=== PATIENT | male | born 1950 | race Caucasian/White ===

== ENCOUNTER 2017-03-16 19:01 | Observation (INO) | payer MEDICARE, OTHER ==
[~2017-03-16] VITALS: Ht 180.3 cm; Wt 91.4 kg
[2017-03-16 19:11] VITALS: BP 172/98; PULSE 106; RESP 16; TEMP 99; O2SAT 95
[2017-03-16] MEDS ORDERED: SODIUM CHLOR 0.9% 1000 ML INJ 1,000 ML IV SCH (19:33)
[2017-03-16] MEDS ORDERED: ONDANSETRON HCL 4 MG/2 ML VIAL IVP ONE (19:45)
[2017-03-16] MEDS ORDERED: MORPHINE SULFATE 2 MG/ML INJ IV PUSH ONE (19:45)
[2017-03-16] MEDS ORDERED: SODIUM CHLORIDE 0.9% FLUSH 10 ML FLUSH IV FLUSH PRN ×2 (19:45→23:15)
[2017-03-16 19:49] VITALS: BP 151/76; PULSE 95; RESP 18; O2SAT 93
--- NOTE | 2017-03-16 19:51 | PD ---
HPI Chief Complaint: Flank/Kidney Pain Time Seen by Provider: 19:29 Travel History International Travel<30 days: No Contact w/Intl Traveler<30days: No Traveled to known affect area: No History of Present Illness HPI 66-year-old male here for evaluation of right flank pain. Patient reports that he has had pain for about 3 days, described as sharp, worse with movements, now radiating towards the midline of his back. He reports history of kidney stones about 5 years ago and reports feeling similar type of pain. He denies gross hematuria. No fevers or chills. No nausea or vomiting. No urinary or bowel incontinence or retention. No paresthesias or motor deficits. He denies trauma. [facility] Past Medical History Hypertension: Yes ?: Not Social History Alcohol Use: Yes (2 drinks/week) Tobacco Use: No Substance Use: No Allergies-Medications (Allergen,Severity, Reaction): Coded Allergies: shrimp (Verified Allergy, Severe, hives, 03/16/17) Uncoded Allergies: lobster (Allergy, Severe, hives, 03/16/17) Review of Systems Except as stated in HPI: all other systems reviewed are Neg Physical Exam Narrative GENERAL: Well-developed, well-nourished, awake, alert, comfortable, no apparent distress. SKIN: Focused skin assessment warm/dry. No rash. HEAD: Atraumatic. Normocephalic. EYES: Pupils equal and round. No scleral icterus. No injection or drainage. ENT: Mucous membranes pink and moist. NECK: Trachea midline. No JVD. CARDIOVASCULAR: Regular rate and rhythm. RESPIRATORY: No accessory muscle use. Clear to auscultation. Breath sounds equal bilaterally. GASTROINTESTINAL: Abdomen soft, non-tender, nondistended. MUSCULOSKELETAL: No obvious deformities. No clubbing. No cyanosis. No edema. Mild right CVA tenderness. No left CVA tenderness. No midline vertebral step- off or tenderness. NEUROLOGICAL: Awake and alert. No obvious cranial nerve deficits. Motor grossly within normal limits. Normal speech. Normal motor/sensory to all 4 extremities. PSYCHIATRIC: Appropriate mood and affect; insight and judgment normal. Data Data Last Documented VS Vital Signs Date Time Temp Pulse Resp B/P (MAP) Pulse Ox O2 Delivery O2 Flow Rate FiO2 03/16/17 20:06 16 03/16/17 19:49 95 151/76 (101) 93 Room Air 03/16/17 19:11 99.0 Orders Orders Complete Blood Count With Diff (03/16/17 19:33) Comprehensive Metabolic Panel (03/16/17 19:33) Lipase (03/16/17 19:33) Prothrombin Time / Inr (Pt) (03/16/17 19:33) Act Partial Throm Time (Ptt) (03/16/17 19:33) Urinalysis - C+S If Indicated (03/16/17 19:33) Ct Abd/Pel W/O Iv Contrast (03/16/17 19:33) Iv Access Insert/Monitor (03/16/17 19:33) Ecg Monitoring (03/16/17 19:33) Oximetry (03/16/17 19:33) Ondansetron Inj (Zofran Inj) (03/16/17 19:45) Sodium Chlor 0.9% 1000 Ml Inj (Ns 1000 M (03/16/17 19:33) Sodium Chloride 0.9% Flush (Ns Flush) (03/16/17 19:45) Ct Lumb Spine W/O Contrast (03/16/17 ) Morphine Inj (Morphine Inj) (03/16/17 19:45) Ct Abd/Pel W Iv Contrast(Rout) (03/16/17 21:47) Hydromorphone Pf Inj (Dilaudid Pf Inj) (03/16/17 22:00) Iohexol 350 Inj (Omnipaque 350 Inj) (03/16/17 22:15) Sodium Chlor 0.9% 1000 Ml Inj (Ns 1000 M (03/16/17 23:00) Potassium Chloride (Kcl) (03/16/17 23:00) Labs Laboratory Tests Test 03/16/17 19:40 03/16/17 19:50 Urine Collection Type VOIDED Urine Color STRAW Urine Turbidity CLEAR Urine pH 6.0 Urine Specific [place] 1.013 Urine Protein NEG mg/dL Urine Glucose (UA) NEG mg/dL Urine Ketones NEG mg/dL Urine Occult Blood MOD Urine Nitrite NEG Urine Bilirubin NEG Urine Leukocyte Esterase NEG Urine RBC 0-3 /hpf Urine WBC 0-2 /hpf Microscopic Urinalysis Comment CULT NOT INDICATED White Blood Count 9.9 TH/MM3 Red Blood Count 4.48 MIL/MM3 Hemoglobin 14.0 GM/DL Hematocrit 42.6 % Mean Corpuscular Volume 95.1 FL Mean Corpuscular Hemoglobin 31.3 PG Mean Corpuscular Hemoglobin Concent 32.9 % Red Cell Distribution Width 11.6 % Platelet Count 274 TH/MM3 Mean Platelet Volume 7.6 FL Neutrophils (%) (Auto) 65.0 % Lymphocytes (%) (Auto) 21.4 % Monocytes (%) (Auto) 11.5 % Eosinophils (%) (Auto) 1.1 % Basophils (%) (Auto) 1.0 % Neutrophils # (Auto) 6.5 TH/MM3 Lymphocytes # (Auto) 2.1 TH/MM3 Monocytes # (Auto) 1.1 TH/MM3 Eosinophils # (Auto) 0.1 TH/MM3 Basophils # (Auto) 0.1 TH/MM3 CBC Comment DIFF FINAL Differential Comment Prothrombin Time 10.7 SEC Prothromb Time International Ratio 1.1 RATIO Activated Partial Thromboplast Time 27.3 SEC Blood Urea Nitrogen 11 MG/DL Creatinine 0.86 MG/DL Random Glucose 110 MG/DL Total Protein 7.2 GM/DL Albumin 3.4 GM/DL Calcium Level 8.3 MG/DL Alkaline Phosphatase 46 U/L Aspartate Amino Transf (AST/SGOT) 8 U/L Alanine Aminotransferase (ALT/SGPT) 14 U/L Total Bilirubin 0.5 MG/DL Sodium Level 134 MEQ/L Potassium Level 3.1 MEQ/L Chloride Level 99 MEQ/L Carbon Dioxide Level 30.6 MEQ/L Anion Gap 4 MEQ/L Estimat Glomerular Filtration Rate 88 ML/MIN Lipase 116 U/L MDM Medical Decision Making Medical Screen Exam Complete: Yes Emergency Medical Condition: Yes Differential Diagnosis Nephrolithiasis, ureterolithiasis, pyelonephritis, musculoskeletal pain, spinal stenosis/cauda equina syndrome less likely Narrative Course Initial vital signs show heart rate 106, blood pressure 172/98, pulse ox 95% on room air, oral temp of 99F. CBC: WBC 9.9, hemoglobin 14, hematocrit 42.6, platelets 274. CMP is remarkable for potassium 3.1 which was replaced orally, otherwise essentially unremarkable. Lipase is 116. CT abdomen pelvis: CONCLUSION: 1. Numerous cystic structures in the renal chelly bilaterally likely representing peripelvic cysts and bilateral cortical renal masses likely representing cysts. These findings could be further evaluated with contrast-enhanced study to confirm that they are cysts. Ureters are normal bladder. No calculi identified. 2. Numerous colonic diverticula. No evidence of acute diverticulitis. 3. Prominent facet arthrosis lower lumbar spine. 4. Markedly enlarged prostate. CT lumbar spine: CONCLUSION: Severe facet arthrosis at L5-S1 with severe bilateral neural foraminal narrowing. Patient was made aware of these findings at this time and recommendation for CT abdomen pelvis with IV contrast. At this point he had been given 4 mg of IV morphine yet complains of continued back pain stating that it did not help at all. He was given a dose of 1 mg of IV Dilaudid. CT abdomen pelvis with IV contrast: CONCLUSION: 1. Renal cortical masses have Hounsfield unit values indicating cysts. Central hilar cystic structures in the kidneys are very likely represent peripelvic cysts. 2. Enlarged prostate. No evidence of ureteral dilatation. Patient was made aware of the CT abdomen pelvis with IV contrast report. He states that his pain has improved with the Dilaudid, however he continues have lower back pain. At this time his heart rate is 115 bpm, sinus. He was already given a liter of normal saline IV and will be given another liter. Given ongoing sinus tachycardia as well as intractable lower back pain, the patient will be admitted for overnight observation. Case discussed with hospitalist Dr. Bee who will admit the patient to the hospitalist service. Diagnosis Primary Impression: Intractable low back pain Additional Impressions: Sinus tachycardia Renal cyst Admitting Information Admitting Physician Requests: Observation Brennen Kunz MD Mar 16, 2017 19:51
[2017-03-16 20:02] LABS: AUTOMATED NEUTROPHIL # 6.5 TH/MM3 (1.8-7.7); BASOPHIL # 0.1 TH/MM3 (0-0.2); EOSINOPHIL # 0.1 TH/MM3 (0-0.4); EOSINOPHIL % 1.1 % (0.0-4.0); HEMATOCRIT 42.6 % (39.0-51.0); LYMPH % 21.4 % (9.0-44.0); LYMPHOCYTE # 2.1 TH/MM3 (1.0-4.8); MEAN CELL VOLUME 95.1 FL (80.0-100.0); MEAN CORPUSCULAR HEMOGLOBIN 31.3 PG (27.0-34.0); MEAN CORPUSCULAR HGB CONC 32.9 % (32.0-36.0); MEAN PLATELET VOLUME 7.6 FL (7.0-11.0); MONO % 11.5 % (0.0-8.0); MONOCYTE # 1.1 TH/MM3 (0-0.9); PLATELET COUNT 274 TH/MM3 (150-450); RED BLOOD COUNT 4.48 MIL/MM3 (4.50-5.90); RED CELL DISTRIBUTION WIDTH 11.6 % (11.6-17.2); WHITE BLOOD COUNT 9.9 TH/MM3 (4.0-11.0)
[2017-03-16 20:11] LABS: CHLORIDE 99 MEQ/L (98-107); SODIUM (NA) 134 MEQ/L (136-145)
[2017-03-16 20:13] LABS: BILIRUBIN, URINE NEG (NEG); BLOOD, URINE MOD (NEG); GLUCOSE,URINE NEG (NEG); KETONE, URINE NEG (NEG); NITRITE,URINE NEG (NEG); URINE LEUKOCYTE ESTERASE NEG (NEG)
[2017-03-16 20:14] LABS: CALCIUM 8.3 MG/DL (8.5-10.1)
[2017-03-16 20:15] LABS: URINE COLOR STRAW (YELLW/STRAW)
[2017-03-16 20:15] LABS: ALBUMIN 3.4 GM/DL (3.4-5.0); BICARBONATE 30.6 MEQ/L (21.0-32.0); BLOOD UREA NITROGEN 11 MG/DL (7-18); GLUCOSE,RANDOM 110 MG/DL (74-106); LIPASE 116 U/L (73-393)
[2017-03-16 20:16] LABS: RBC, URINE 0-3 /hpf (0-3)
[2017-03-16 20:17] LABS: WBC, URINE 0-2 /hpf (0-5)
[2017-03-16 20:17] LABS: INTERNATIONAL NORMALIZED RATIO 1.1 RATIO; PROTHROMBIN TIME - PATIENT 10.7 SEC (9.8-11.6)
[2017-03-16 20:18] LABS: ALT (GPT) 14 U/L (12-78); AST (GOT) 8 U/L (15-37); CREATININE 0.86 MG/DL (0.60-1.30); GLOMERULAR FILTRATION RATE 88 ML/MIN (>89)
[2017-03-16 20:20] LABS: TOTAL BILIRUBIN ADULT 0.5 MG/DL (0.2-1.0); TOTAL PROTEIN 7.2 GM/DL (6.4-8.2)
[2017-03-16 20:21] LABS: ALKALINE PHOSPHATASE 46 U/L (45-117)
[2017-03-16 21:00] VITALS: BP 154/76; PULSE 96; RESP 18; O2SAT 92
--- NOTE | 2017-03-16 21:30 | RADRPT ---
EXAM DATE/TIME: 03/16/2017 20:22 [facility] COMPARISON: No previous studies available for comparison. INDICATIONS : Right flank and back pain for 3 days ORAL CONTRAST: No oral contrast ingested. RADIATION DOSE: 17.94 CTDIvol (mGy) MEDICAL HISTORY : Hypertension. Renal calculi. SURGICAL HISTORY : None. ENCOUNTER: Initial ACUITY: 3 days PAIN SCALE: 8/10 LOCATION: Right flank TECHNIQUE: Volumetric scanning of the abdomen and pelvis was performed. Using automated exposure control and ad justment of the mA and/or kV according to patient size, radiation dose was kept as low as reasonably achievable to obtain optimal diagnostic quality images. DICOM format image data is available electro nically for review and comparison. FINDINGS: LOWER LUNGS: The visualized lower lungs are clear. LIVER: Homogeneous density without lesion. There is no dilation of the biliary tree. No calcified gallston es. SPLEEN: Normal size without lesion. PANCREAS: Within normal limits. KIDNEYS: Are multiple cystic structures in the renal chelly bilaterally likely representing peripelvic cysts. 2. 8 cm posterior mid pole right renal mass, exophytic 2.4 cm posterior mid pole left renal mass and 1.5 cm exophytic medial left upper pole renal mass all likely represent cysts. No calculi identified. Ur eters are normal in diameter. ADRENAL GLANDS: Within normal limits. VASCULAR: Aortic diameter are within normal limits. Diffuse arterial calcification. BOWEL/MESENTERY: Numerous colonic diverticula. No evidence of acute diverticulitis. No free air or free fluid. Appendi x within normal limits. ABDOMINAL WALL: Within normal limits. RETROPERITONEUM: There is no lymphadenopathy. BLADDER: Mildly distended urinary bladder. REPRODUCTIVE: Enlarged prostate measuring 6.8 cm in transverse dimension. INGUINAL: There is no lymphadenopathy or hernia. MUSCULOSKELETAL: Prominent lower lumbar spine facet arthrosis. CONCLUSION: 1. Numerous cystic structures in the renal chelly bilaterally likely representing peripelvic cysts and bilateral cortical renal masses likely representing cysts. These findings could be further evaluated with contrast-enhanced study to confirm that they are cysts. Ureters are normal bladder. No calculi i dentified. 2. Numerous colonic diverticula. No evidence of acute diverticulitis. 3. Prominent facet arthrosis lower lumbar spine. 4. Markedly enlarged prostate. Jovi Browning MD on March 16, 2017 at 21:23 Board Certified Radiologist. This report was verified electronically.
--- NOTE | 2017-03-16 21:33 | RADRPT ---
EXAM DATE/TIME: 03/16/2017 20:22 [facility] COMPARISON: CT ABDOMEN & PELVIS W/O CONTRAST, March 16, 2017, 20:22. INDICATIONS : Right flank and back pain for 3 days. RADIATION DOSE: CTDIvol (mGy) ; Reconstructed from previous dataset, no dose MEDICAL HISTORY : Hypertension. Renal calculi. SURGICAL HISTORY : None. ENCOUNTER: Initial ACUITY: 3 days PAIN SCALE: 8/10 LOCATION: Right flank TECHNIQUE: Volumetric scanning of the lumbar spine was performed. Multiplanar reconstructions in the sagittal, coronal and oblique axial planes were performed. Using automated exposure control and adjustment of the mA and/or kV according to patient size, radiation dose was kept as low as reasonably achievable t o obtain optimal diagnostic quality images. DICOM format image data is available electronically for review and comparison. FINDINGS: VERTEBRAE: Normal vertebral body height. ALIGNMENT: Mild grade 1 anterolisthesis L5 on S1. Alignment otherwise within normal limits. T12-L1: The thecal sac has a normal diameter. No evidence of disc bulge or protrusion. The neural foramina are patent bilaterally. L1-L2: The thecal sac has a normal diameter. No evidence of disc bulge or protrusion. The neural foramina are patent bilaterally. L2-L3: Minimal broad-based disc bulge. No evidence of focal disc protrusion. Central canal normal diameter. Neural foraminal diameters within normal limits. L3-L4: Minimal broad-based disc bulge. No evidence of focal disc protrusion. Central canal normal diameter. Neural foraminal diameters within normal limits. L4-L5: Mild broad-based disc bulge and bilateral facet arthrosis. No evidence of focal disc protrusion. Cent ral canal normal diameter. Neural foraminal diameters within normal limits. L5-S1: Severe bilateral facet arthrosis, grade 1 anterolisthesis. Broad-based disc bulge. Severe bilateral n eural foraminal narrowing. Central canal diameter within normal limits. CONCLUSION: Severe facet arthrosis at L5-S1 with severe bilateral neural foraminal narrowing. Jovi Browning MD on March 16, 2017 at 21:28 Board Certified Radiologist. This report was verified electronically.
[2017-03-16 22:00] VITALS: BP 151/74; PULSE 98; RESP 18; O2SAT 93
[2017-03-16] MEDS ORDERED: HYDROmorphone HCL PF 1 MG/ML VIAL IV PUSH ONE (22:00)
[2017-03-16] MEDS ORDERED: IOHEXOL 350 MG/ML 10 ML VIAL (for RAD DIAG) IVCONTRAST ONE (22:15)
--- NOTE | 2017-03-16 22:31 | RADRPT ---
EXAM DATE/TIME: 03/16/2017 22:09 [facility] COMPARISON: CT ABDOMEN & PELVIS W/O CONTRAST, March 16, 2017, 20:22. INDICATIONS : Right flank and back pain. Abnormal non contrast CT IV CONTRAST: 96 cc Omnipaque 350 (iohexol) IV ORAL CONTRAST: No oral contrast ingested. RADIATION DOSE: 11.82 CTDIvol (mGy) MEDICAL HISTORY : Hypertension. SURGICAL HISTORY : None. ENCOUNTER: Initial ACUITY: 3 days PAIN SCALE: 7/10 LOCATION: Right flank TECHNIQUE: Volumetric scanning of the abdomen and pelvis was performed. Using automated exposure control and ad justment of the mA and/or kV according to patient size, radiation dose was kept as low as reasonably achievable to obtain optimal diagnostic quality images. DICOM format image data is available electro nically for review and comparison. FINDINGS: Multiple cystic structures in the renal chelly have an appearance very suggestive of peripelvic cysts. Ureters are normal diameter. Posterior left renal mass and posterior mid pole right renal mass have H ounsfield unit measurements indicating cysts. Mildly prominent intrahepatic and extra hepatic biliary ducts with common duct measuring 9 mm in port a hepatis. Gallbladder, spleen, pancreas, and adrenal glands within normal limits. Bladder moderately distended. Prostate enlarged. Numerous colonic diverticula. No evidence of acute d iverticulitis. Appendix within normal limits. Prominent facet arthrosis lower lumbar spine. CONCLUSION: 1. Renal cortical masses have Hounsfield unit values indicating cysts. Central hilar cystic structure s in the kidneys are very likely represent peripelvic cysts. 2. Enlarged prostate. No evidence of ureteral dilatation. Jovi Browning MD on March 16, 2017 at 22:23 Board Certified Radiologist. This report was verified electronically.
[2017-03-16 23:00] VITALS: BP 148/80; PULSE 114; RESP 18; O2SAT 92
[2017-03-16] MEDS ORDERED: SODIUM CHLOR 0.9% 1000 ML INJ 1,000 ML IV ONE (23:00)
[2017-03-16] MEDS ORDERED: POTASSIUM CHLORIDE 20 MEQ CONTROLLED RELEASE TAB PO ONE (23:00)
[2017-03-16] MEDS ORDERED: ACETAMINOPHEN 325 MG TAB PO PRN (23:15)
[2017-03-16] MEDS ORDERED: ONDANSETRON HCL 4 MG/2 ML VIAL IVP PRN (23:15)
[2017-03-16] MEDS ORDERED: SENNOSIDES 8.6 MG TAB PO PRN (23:15)
[2017-03-16] MEDS ORDERED: MAGNESIUM HYDROXIDE SUSP 30 ML CUP PO PRN (23:15)
[2017-03-16] MEDS ORDERED: TRIMETHOBENZAMIDE INJ 200 MG/2 ML VIAL IM PRN (23:15)
[2017-03-16] MEDS ORDERED: LACTULOSE SYRUP 20 GM/30 ML CUP PO PRN (23:15)
[2017-03-16] MEDS ORDERED: ACETAMINOPHEN/HYDROcodone 325 MG/5 MG TAB PO PRN (23:15)
[2017-03-16] MEDS ORDERED: BISACODYL 10 MG SUPP RECTAL PRN (23:15)
[2017-03-16 23:55] VITALS: BP 158/88
[2017-03-17] VITALS: BP 169/95; PULSE 117; RESP 20; TEMP 99; O2SAT 95
[2017-03-17] MEDS: SODIUM CHLOR 0.9% 1000 ML INJ 1,000 ML IV SCH ×2 (00:55→08:59)
[2017-03-17] MEDS: MORPHINE SULFATE 2 MG/ML INJ IV PUSH PRN ×3 (01:00→09:58)
[2017-03-17] MEDS ORDERED: ASPI81CH6 CHEW (01:05)
[2017-03-17 04:00] VITALS: O2SAT 95
[2017-03-17 07:50] VITALS: BP 154/82; PULSE 114; RESP 20; TEMP 99.4; O2SAT 94
[2017-03-17 08:10] LABS: AUTOMATED NEUTROPHIL # 7.1 TH/MM3 (1.8-7.7); BASOPHIL % 0.3 % (0.0-2.0); EOSINOPHIL % 0.2 % (0.0-4.0); HEMATOCRIT 39.2 % (39.0-51.0); HEMOGLOBIN 12.8 GM/DL (13.0-17.0); LYMPH % 11.8 % (9.0-44.0); LYMPHOCYTE # 1.1 TH/MM3 (1.0-4.8); MEAN CELL VOLUME 96.3 FL (80.0-100.0); MEAN CORPUSCULAR HEMOGLOBIN 31.4 PG (27.0-34.0); MEAN CORPUSCULAR HGB CONC 32.6 % (32.0-36.0); MEAN PLATELET VOLUME 7.5 FL (7.0-11.0); MONO % 12.8 % (0.0-8.0); MONOCYTE # 1.2 TH/MM3 (0-0.9); NEUT % 74.9 % (16.0-70.0); PLATELET COUNT 264 TH/MM3 (150-450); RED BLOOD COUNT 4.07 MIL/MM3 (4.50-5.90); RED CELL DISTRIBUTION WIDTH 12.1 % (11.6-17.2); WHITE BLOOD COUNT 9.4 TH/MM3 (4.0-11.0)
[2017-03-17 08:13] LABS: CHLORIDE 106 MEQ/L (98-107); SODIUM (NA) 139 MEQ/L (136-145)
[2017-03-17 08:34] LABS: ALBUMIN 2.8 GM/DL (3.4-5.0); ALKALINE PHOSPHATASE 36 U/L (45-117); ALT (GPT) 11 U/L (12-78); AST (GOT) 8 U/L (15-37); BICARBONATE 27.9 MEQ/L (21.0-32.0); BLOOD UREA NITROGEN 7 MG/DL (7-18); CREATININE 0.71 MG/DL (0.60-1.30); GLOMERULAR FILTRATION RATE 110 ML/MIN (>89); GLUCOSE,RANDOM 131 MG/DL (74-106); TOTAL PROTEIN 6.3 GM/DL (6.4-8.2)
[2017-03-17] MEDS ORDERED: DOCUSATE SODIUM 50 MG/SENNA 8.6 MG TAB PO SCH (09:00)
[2017-03-17] MEDS ORDERED: SODIUM CHLORIDE 0.9% FLUSH 10 ML FLUSH IV FLUSH SCH (09:00)
[2017-03-17] MEDS ORDERED: INFLUENZA VIRUS VACCINE (QUADRIVALENT) 0.5 ML SYR IM ONE (09:00)
[2017-03-17] MEDS ORDERED: TAMS0.4C4 PO (10:46)
[2017-03-17] MEDS ORDERED: HYDR12.57 PO (10:48)
[2017-03-17] MEDS ORDERED: AMLO10TA2 PO (10:49)
[2017-03-17] MEDS ORDERED: METO25TA3 PO (10:54)
[2017-03-17] MEDS ORDERED: OMEP20TA93 PO (10:55)
[2017-03-17] MEDS ORDERED: LOSA50TA PO (10:55)
[2017-03-17] MEDS ORDERED: methylPREDNISolone SOD SUCC 40 MG/1 ML VIAL IV PUSH ONE ×2 (11:00→16:45)
[2017-03-17] MEDS ORDERED: KETOROLAC TROMETHAMINE 30 MG/ML (IVP) VIAL IV PUSH ONE ×2 (11:00→16:45)
[2017-03-17 11:50] VITALS: BP 134/74; PULSE 99; RESP 20; TEMP 97.4; O2SAT 93
--- NOTE | 2017-03-17 14:17 | HHI.HP ---
[facility] Service [facility] Primary Care Physician No Primary Care Physician Admission Diagnosis intractable low back pain, sinus tachycardia, renal cysts Diagnoses: Chief Complaint: Back pain Travel History International Travel<30 Days: No Contact w/Intl Traveler <30 Da: No Traveled to Known Affected Are: No History of Present Illness Patient is a 66-year-old gentleman with a history of hypertension who complained of right and left lower back pain for the last 3 days. He tried some hydrocodone that he had leftover from previous dental work. This was not helpful. He reports the pain is worse with movement and walking. There have been no fevers or chills. He has a history of kidney stones and thought maybe was a kidney stone. He has no hematuria and is not passing any stones. Patient had elevated heart rate and blood pressure which improved with IV morphine for pain. The back pain was improved also with IV morphine. Patient has no nausea and vomiting. He has been recommended for further observation and treatment due to intractable lumbar pain. Review of Systems Constitutional: DENIES: Diaphoretic episodes, Fatigue, Fever, Weight gain, Weight loss, Chills, Dizziness, Change in appetite, Night Sweats Endocrine: DENIES: Heat/cold intolerance, Polydipsia, Polyuria, Polyphagia Eyes: DENIES: Blurred vision, Diplopia, Eye inflammation, Eye pain, Vision loss , Photosensitivity, Double Vision Ears, nose, mouth, throat: DENIES: Tinnitus, Hearing loss, Vertigo, Nasal discharge, Oral lesions, Throat pain, Hoarseness, Ear Pain, Running Nose, Epistaxis, Sinus Pain, Toothache, Odynophagia Respiratory: DENIES: Apneas, Cough, Snoring, Wheezing, Hemoptysis, Sputum production, Shortness of breath Cardiovascular: DENIES: Chest pain, Palpitations, Syncope, Dyspnea on Exertion , PND, Lower Extremity Edema, Orthopnea, Claudication Genitourinary: DENIES: Sexual dysfunction, Urinary frequency, Urinary incontinence, Urgency, Hematuria, Dysuria, Nocturia, Penile Discharge, Testicular Pain, Testicular Swelling Musculoskeletal: COMPLAINS OF: Back pain, DENIES: Joint pain, Muscle aches, Stiffness, Joint Swelling, Neck pain Integumentary: DENIES: Abnormal pigmentation, Nail changes, Pruritus, Rash Hematologic/lymphatic: DENIES: Bruising, Lymphadenopathy Immunologic/allergic: DENIES: Eczema, Urticaria Neurologic: DENIES: Abnormal gait, Headache, Localized weakness, Paresthesias, Seizures, Speech Problems, Tremor, Poor Balance Psychiatric: DENIES: Anxiety, Confusion, Mood changes, Depression, Hallucinations, Agitation, Suicidal Ideation, Homicidal Ideation, Delusions Except as stated in HPI: all other systems reviewed are Neg Past Family Social History Past Medical History Hypertension Benign prostatic hyperplasia Nephrolithiasis Past Surgical History Bilateral knee replacements Hernia repair Reported Medications Reviewed in the EMR Allergies: Coded Allergies: shrimp (Verified Allergy, Severe, hives, 03/16/17) Uncoded Allergies: lobster (Allergy, Severe, hives, 03/16/17) Active Ordered Medications Reviewed in the EMR Family History Mother at 73 from pancreatic cancer Father at 93 Social History Lives with his , visiting from [place] Denies tobacco or alcohol dependency Physical Exam Vital Signs Vital Signs Date Time Temp Pulse Resp B/P (MAP) Pulse Ox O2 Delivery O2 Flow Rate FiO2 03/17/17 11:50 97.4 99 20 134/74 (94) 93 03/17/17 07:50 99.4 114 20 154/82 (106) 94 03/17/17 04:00 95 03/17/17 00:00 99.0 117 20 169/95 (119) 95 03/16/17 23:55 116 18 158/88 (111) 92 03/16/17 23:00 114 18 148/80 (102) 92 Room Air 03/16/17 22:58 18 03/16/17 22:00 98 18 151/74 (99) 93 03/16/17 21:00 96 18 154/76 (102) 92 Room Air 03/16/17 20:06 16 03/16/17 19:49 95 18 151/76 (101) 93 Room Air 03/16/17 19:32 18 03/16/17 19:11 99.0 106 16 172/98 (122) 95 Physical Exam GENERAL: This is a well-nourished, well-developed patient, in no apparent distress. SKIN: No rashes, ecchymoses or lesions. Cool and dry. HEAD: Atraumatic. Normocephalic. No temporal or scalp tenderness. EYES: Pupils equal round and reactive. Extraocular motions intact. No scleral icterus. No injection or drainage. ENT: Nose without bleeding, purulent drainage or septal hematoma. Throat without erythema, tonsillar hypertrophy or exudate. Uvula midline. Airway patent. NECK: Trachea midline. No JVD or lymphadenopathy. Supple, nontender, no meningeal signs. CARDIOVASCULAR: Regular rate and rhythm without murmurs, gallops, or rubs. RESPIRATORY: Clear to auscultation. Breath sounds equal bilaterally. No wheezes , rales, or rhonchi. GASTROINTESTINAL: Abdomen soft, non-tender, nondistended. No hepato-splenomegaly , or palpable masses. No guarding. MUSCULOSKELETAL: Tenderness along the left lumbar region, otherwise Extremities without clubbing, cyanosis, or edema. No joint tenderness, effusion, or edema noted. No calf tenderness. Negative Homans sign bilaterally. Difficulty with raising left leg NEUROLOGICAL: Awake and alert. Cranial nerves II through XII intact. Motor and sensory grossly within normal limits. Five out of 5 muscle strength in all muscle groups. Normal speech. Laboratory Laboratory Tests Test 03/16/17 19:40 03/16/17 19:50 03/17/17 07:15 Urine Collection Type VOIDED Urine Color STRAW Urine Turbidity CLEAR Urine pH 6.0 Urine Specific [place] 1.013 Urine Protein NEG Urine Glucose (UA) NEG Urine Ketones NEG Urine Occult Blood MOD Urine Nitrite NEG Urine Bilirubin NEG Urine Leukocyte Esterase NEG Urine RBC 0-3 Urine WBC 0-2 Microscopic Urinalysis Comment CULT NOT INDICATED White Blood Count 9.9 9.4 Red Blood Count 4.48 4.07 Hemoglobin 14.0 12.8 Hematocrit 42.6 39.2 Mean Corpuscular Volume 95.1 96.3 Mean Corpuscular Hemoglobin 31.3 31.4 Mean Corpuscular Hemoglobin Concent 32.9 32.6 Red Cell Distribution Width 11.6 12.1 Platelet Count 274 264 Mean Platelet Volume 7.6 7.5 Neutrophils (%) (Auto) 65.0 74.9 Lymphocytes (%) (Auto) 21.4 11.8 Monocytes (%) (Auto) 11.5 12.8 Eosinophils (%) (Auto) 1.1 0.2 Basophils (%) (Auto) 1.0 0.3 Neutrophils # (Auto) 6.5 7.1 Lymphocytes # (Auto) 2.1 1.1 Monocytes # (Auto) 1.1 1.2 Eosinophils # (Auto) 0.1 0.0 Basophils # (Auto) 0.1 0.0 CBC Comment DIFF FINAL DIFF FINAL Differential Comment Prothrombin Time 10.7 Prothromb Time International Ratio 1.1 Activated Partial Thromboplast Time 27.3 Blood Urea Nitrogen 11 7 Creatinine 0.86 0.71 Random Glucose 110 131 Total Protein 7.2 6.3 Albumin 3.4 2.8 Calcium Level 8.3 8.0 Alkaline Phosphatase 46 36 Aspartate Amino Transf (AST/SGOT) 8 8 Alanine Aminotransferase (ALT/SGPT) 14 11 Total Bilirubin 0.5 1.0 Sodium Level 134 139 Potassium Level 3.1 3.6 Chloride Level 99 106 Carbon Dioxide Level 30.6 27.9 Anion Gap 4 5 Estimat Glomerular Filtration Rate 88 110 Lipase 116 Result Diagram: 03/17/17 0715 03/17/17 0715 Imaging Last 24 hours Impressions Abdomen/Pelvis CT 03/16/172146 Signed Impressions: Service Date/Time: Thursday, March 16, 2017 22:09 - CONCLUSION: 1. Renal cortical masses have Hounsfield unit values indicating cysts. Central hilar cystic structures in the kidneys are very likely represent peripelvic cysts. 2. Enlarged prostate. No evidence of ureteral dilatation. Jovi Browning MD Abdomen/Pelvis CT 03/16/17 193 Signed Impressions: Service Date/Time: Thursday, March 16, 2017 20:22 - CONCLUSION: 1. Numerous cystic structures in the renal chelly bilaterally likely representing peripelvic cysts and bilateral cortical renal masses likely representing cysts. These findings could be further evaluated with contrast-enhanced study to confirm that they are cysts. Ureters are normal bladder. No calculi identified. 2. Numerous colonic diverticula. No evidence of acute diverticulitis. 3. Prominent facet arthrosis lower lumbar spine. 4. Markedly enlarged prostate. Jovi Browning MD Caprini VTE Risk Assessment Caprini VTE Risk Assessment: No/Low Risk (score <= 1) Caprini Risk Assessment Model Point Value = 1 Point Value = 2 Point Value = 3 Point Value = 5 Age 41-60 Minor surgery BMI > 25 kg/m2 Swollen legs Varicose veins or History of unexplained or recurrent spontaneous Oral contraceptives or hormone replacement Sepsis (< 1 month) Serious lung disease, including pneumonia (< 1 month) Abnormal pulmonary function Acute myocardial infarction Congestive heart failure (< 1 month) History of inflammatory bowel disease Medical patient at bed rest Age 61-74 Arthroscopic surgery Major open surgery (> 45 min) Laparoscopic surgery (> 45 min) Malignancy Confined to bed (> 72 hours) Immobilizing plaster cast Central venous access Age >= 75 History of VTE Family history of VTE Factor V Leiden Prothrombin [id number] Lupus anticoagulant Anticardiolipin antibodies Elevated serum homocysteine Heparin-induced thrombocytopenia Other congenital or acquired thrombophilia Stroke (< 1 month) Elective arthroplasty Hip, pelvis, or leg fracture Acute spinal cord injury (< 1 month) Prophylaxis Regimen Total Risk Factor Score Risk Level Prophylaxis Regimen 0-1 Low Early ambulation 2 Moderate Order ONE of the following: *Sequential Compression Device (SCD) *Heparin 5000 units SQ BID 3-4 Higher Order ONE of the following medications: *Heparin 5000 units SQ TID *Enoxaparin/Lovenox 40 mg SQ daily (WT < 150 kg, CrCl > 30 mL/min) *Enoxaparin/Lovenox 30 mg SQ daily (WT < 150 kg, CrCl > 10-29 mL/min) *Enoxaparin/Lovenox 30 mg SQ BID (WT < 150 kg, CrCl > 30 mL/min) AND/OR *Sequential Compression Device (SCD) 5 or more Highest Order ONE of the following medications: *Heparin 5000 units SQ TID (Preferred with Epidurals) *Enoxaparin/Lovenox 40 mg SQ daily (WT < 150 kg, CrCl > 30 mL/min) *Enoxaparin/Lovenox 30 mg SQ daily (WT < 150 kg, CrCl > 10-29 mL/min) *Enoxaparin/Lovenox 30 mg SQ BID (WT < 150 kg, CrCl > 30 mL/min) AND *Sequential Compression Device (SCD) Assessment and Plan Problem List: (1) Intractable low back pain ICD Code: M54.5 - Low back pain Status: Acute Plan: will follow-up MRI Pending findings we'll discuss with neurosurgery Monitor patient with current IV narcotics for pain management as well as anti- inflammatory medicine IV steroids given for inflammation as well (2) HTN (hypertension) ICD Code: I10 - Essential (primary) hypertension Plan: Continue home medications for blood pressure (3) BPH (benign prostatic hyperplasia) ICD Code: N40.0 - Benign prostatic hyperplasia without lower urinary tract symptoms Plan: Continue Flomax Fide Delgado MD Mar 17, 2017 14:17
[2017-03-17] MEDS ORDERED: LOSARTAN 50 MG TAB PO SCH (15:00)
--- NOTE | 2017-03-17 15:17 | RADRPT ---
EXAM DATE/TIME: 03/17/2017 14:37 [facility] COMPARISON: CT LUMBAR SPINE W/O CONTRAST, March 16, 2017, 20:22. INDICATIONS : Pain. Bilateral flank pain. MEDICAL HISTORY : Hypertension. SURGICAL HISTORY : Total knee replacement, left. Total knee replacement, right. ENCOUNTER: Initial ACUITY: 1 day PAIN SCORE: 2/10 LOCATION: [facility] TECHNIQUE: Multiplanar multisequence MRI of the lumbar spine was performed without contrast. FINDINGS: The most caudal appearing lumbar vertebra is numbered as L5. VERTEBRAE: Homogeneous signal. Normal alignment. There is disc desiccation. CONUS: Normal level and configuration. T12-L1: The thecal sac has a normal diameter. No evidence of disc bulge or protrusion. The neural foramina are patent bilaterally. L1-L2: The thecal sac has a normal diameter. No evidence of disc bulge or protrusion. The neural foramina are patent bilaterally. L2-L3: The thecal sac has a normal diameter. No evidence of disc bulge or protrusion. The neural foramina are patent bilaterally. L3-L4: The thecal sac has a normal diameter. No evidence of disc bulge or protrusion. The neural foramina are patent bilaterally. L4-L5: The thecal sac has a normal diameter. No evidence of disc bulge or protrusion. The neural foramina are patent bilaterally. L5-S1: There is a mild disc bulge with minimal flattening of the anterior thecal sac focal protrusion. Exten sive degenerative changes of the facet joints is noted on the CT with narrowing of the neural foramin a bilaterally.. CONCLUSION: 1. Extensive degenerative change again noted involving the facet joints at L5-S1 with bilateral vicky inal narrowing. 2. Mild disc bulge at L5-S1. Inocente Montelongo MD on March 17, 2017 at 15:12 Board Certified Radiologist. This report was verified electronically.
[2017-03-17 15:50] VITALS: BP 145/79; PULSE 95; RESP 20; TEMP 97.8; O2SAT 95
[2017-03-17] MEDS ORDERED: PANTOPRAZOLE SOD 20 MG DELAYED RELEASE TAB PO SCH (16:00)
[2017-03-17] MEDS ORDERED: HYDR-3516 PO (16:21)
[2017-03-17] MEDS ORDERED: IBUP1TAB7 PO (16:21)
[2017-03-17] MEDS ORDERED: PRED10 PO (16:21)
--- NOTE | 2017-03-17 16:21 | HHI.DCPOC ---
Discharge Care Plan Diagnosis: (1) Intractable low back pain Goals to Promote Your Health * To prevent worsening of your condition and complications * To maintain your health at the optimal level Directions to Meet Your Goals Take your medications as prescribed Follow your dietary instruction Follow activity as directed Keep your appointments as scheduled Take your immunizations and boosters as scheduled If your symptoms worsen call your PCP, if no PCP go to Urgent Care Center or Emergency Room Smoking is Dangerous to Your Health. Avoid second hand smoke Call the 24-hour hour crisis hotline for domestic abuse at Fide Delgado MD Mar 17, 2017 16:21
[2017-03-17] MEDS ORDERED: HYDROCHLOROTHIAZIDE 12.5 MG CAP PO SCH (21:00)
[2017-03-17] MEDS ORDERED: TAMSULOSIN HCL 0.4 MG CAP PO SCH (21:00)
[2017-03-18] MEDS ORDERED: METOPROLOL TARTRATE 25 MG TAB PO SCH (09:00)
== END 2017-03-17 17:19 | disposition home or self-care (01) ==
LOC: PHED 19:01 → PHEDA 23:02 → PH3A 03-17 00:01
PROVIDERS: ADMIT Hospitalist; ATTEND Hospitalist
DX: M54.5 Low back pain (principal); I10 Essential (primary) hypertension; N40.0 Benign prostatic hyperplasia without lower urinary tract symptoms; K57.30 Diverticulosis of large intestine without perforation or abscess without bleeding; Z87.442 Personal history of urinary calculi; M46.97 Unspecified inflammatory spondylopathy, lumbosacral region; R00.0 Tachycardia, unspecified; N28.1 Cyst of kidney, acquired; Z23 Encounter for immunization
CPT/HCPCS: 72131; 72148; 74176; 74177; 80053; 81001; 83690; 85025; 85610; 85730; 96361; 96372; 96374; 96375; 96376; 99285; G0008; G0378; J1170; J1885; J2270; J2405; J2920; J7030; Q2038; Q9967; 90471; 90686